=== PATIENT | female | born 1975 | race Caucasian/White ===

== ENCOUNTER 2021-10-16 00:36 | Day surgery (SDC) | payer BC, SELFPAY ==
--- NOTE | ~2021-10-16 | XR_ITS ---
XR chest 1V portable DATE: 10/16/2021 01:16 INDICATION: Cardiac arrest. STEMI. TECHNIQUE: Portable AP chest on 10/16/2021 at 0102 hours COMPARISON: None FINDINGS: ET tube in satisfactory position 2.7 cm above atul. NG tube coiled once in upper stomach. No pulmonary infiltrate or consolidation, pleural effusion or pulmonary vascular congestion or pneumo thorax. Heart size is likely within normal range considering magnification associated with AP project ion. IMPRESSION: No active cardiopulmonary disease ET and NG tubes in satisfactory position Reviewed, dictated and finalized at location [facility].
--- NOTE | ~2021-10-16 | XR_ITS ---
XR abdomen NG/feed tube insert DATE: 10/16/2021 01:20 INDICATION: Orogastric tube placement TECHNIQUE: AP view on 10/16/2021 at 0107 hours COMPARISON: None FINDINGS: Orogastric tube is in the upper body of the stomach, the proximal side-port just proximal t o the diaphragmatic hiatus. Tube advancement is recommended. IMPRESSION: Oral gastric tube in proximal stomach with proximal side-port in lower thorax; tube advan cement is recommended Reviewed, dictated and finalized at [facility]. Reviewed, dictated and finalized at location [facility]. IMPRESSION: Oral gastric tube in proximal stomach with proximal side-port in lo wer thorax; tube advancement is recommended
--- NOTE | 2021-10-16 00:32 | ECG_ITS ---
Measurements Intervals [place] Rate: 131 P: MA: 0 QRS: 78 QRSD: 112 T: 0 QT: 238 QTc: 351 Interpretive Statements ATRIAL FIBRILLATION WITH RAPID VENTRICULAR RESPONSE INTRAVENTRICULAR CONDUCTION DELAY DELAYED PRECORDIAL R/S TRANSITION INFERIOR ST ELEVATION MYOCARDIAL INFARCT- AGE INDETERMINATE POSTERIOR INFARCT, AGE INDETERMINATE ABNORMAL ECG Electronically Signed On 10-16-2021 9:57:01 CDT by Diego Lares D.O.
[2021-10-16 00:48] LABS: Basophils Absolute Auto 0.1 K/mm3 (0.0-0.1); Eosinophils Absolute Auto 0.2 K/mm3 (0-0.3); Eosinophils Percent Auto 1.6 % (0-4.4); Hemoglobin 11.9 g/dL (12.0-15.0); Immature Granulocyte Absolute 0.34 K/mm3 (0.00-0.031); Immature Granulocyte Percent A 2.6 % (0-0.5); Lymphocytes Absolute Auto 4.17 K/mm3 (0.9-3.2); Lymphocytes Percent Auto 32.4 % (18.3-44.2); Mean Corpuscular HGB Conc 32.2 g/dl (32-36); Mean Corpuscular Hemoglobin 33.6 pg (26-34); Mean Corpuscular Volume 104.5 fl (80-100); Mean Platelet Volume 8.9 fl (7.4-10.4); Monocytes Absolute Auto 1.1 K/mm3 (0.1-0.6); Monocytes Percent Auto 8.5 % (2.6-8.5); Neutrophils Absolute Auto 6.9 K/mm3 (1.3-6.7); Neutrophils Percent Auto 53.9 % (45.5-73.1); Platelet Count Result 347 k/mm3 (150-375); Red Blood Count 3.54 M/mm3 (4.2-5.4); Red Cell Distribution Width 13.1 % (11.5-14.5); White Blood Count 12.9 K/mm3 (4.5-10.0)
--- NOTE | 2021-10-16 00:50 | ED.GENADULT ---
HPI - General Adult General Chief complaint: Cardiac Arrest/CPR Stated complaint: CARDIAC ARRESST, STEMI Time Seen by Provider: 10/16/21 00:45 Source: EMS Mode of arrival: EMS Limitations: altered mental status and clinical condition History of Present Illness HPI narrative: Patient is a 46-year-old female who presents the emergency department with chief complaint of cardiac arrest. Patient was at work and collapsed CPR was started in the field and the patient was found to be in V. fib the patient was shocked 3 times in the field and had return of spontaneous circulation. The patient was being assisted with ventilation by bag valve mask by EMS. Upon arrival to emergency department the patient was still in return of spontaneous circulation with the a inferior ST elevation findings on EKG the prehospital setting. STEMI alert was activated Review of Systems Review of Systems: ROS unobtainable: Yes unobtainable due to endotracheal tube, unobtainable due to medical condition and unobtainable due to mental status Exam Narrative: GENERAL: Unresponsive with ventilations being assisted with [id number] and oropharyngeal airway HEAD: Normocephalic, atraumatic. EYES: PERRLA and EOMI.pupils 2mm ENT: Nares clear, no rhinorrhea or epistaxis. Mucous membranes moist. NECK: Supple. CHEST: Clear to auscultation. No respiratory distress. HEART: Regular rate and rhythm. No murmur heard. Normal peripheral pulses. ABDOMEN: Soft, nontender, nondistended, normal active bowel sounds. EXTREMITIES: Normal range of motion. No edema. SKIN: Warm, dry, no rash. NEURO: unresponsive PSYCH: Normal mood and affect. Course Course Emergency Course: EKG acute inferior ST elevation MO Given the patient has ROSC and had V. fib in the field as well as acute inferior ST elevations the patient was activated as a ST elevation MO. The case was discussed with the on-call front desk attendant who will take the patient to the Social Media Content Manager. Vital Signs Vital signs: Vital Signs Pulse Rate 78 10/16/21 01:01 Respiratory Rate 20 10/16/21 01:01 Pulse Rate 128 H 10/16/21 01:25 Respiratory Rate 20 10/16/21 01:09 Blood Pressure 96/71 L 10/16/21 01:09 Pulse Oximetry 100 10/16/21 01:09 Oxygen Delivery Bag Valve Mask 10/16/21 01:09 Procedures Intubation Intubation #1: Intubation Date: 10/16/21 Intubation Time: 00:54 Time out performed: Yes sedative: Etomidate Mg Given: 20 paralytic: Succinylcholine Mg Given: 100 Laryngoscope: fiber optic video scope Assist Device Used: fiber optic device Tube Size (cm): 7.5 Method of Intubation: orotracheal Number of Attempts: 1 Tube Secured Depth (cm): 22 Tube Secured Location: lips Tube Placement Confirmation: visualized tube passing through cords, equal breath sounds bilaterally, no breath sounds over epigastrium and confirmation by capnometry Patient Tolerated Procedure: well Intubation Complications: none Medical Decision Making Vital Signs Vital Signs: Vital Signs Pulse Rate 78 10/16/21 01:01 Respiratory Rate 20 10/16/21 01:01 Pulse Rate 128 H 10/16/21 01:25 Respiratory Rate 20 10/16/21 01:09 Blood Pressure 96/71 L 10/16/21 01:09 Pulse Oximetry 100 10/16/21 01:09 Oxygen Delivery Bag Valve Mask 10/16/21 01:09 Lab Data Result diagrams: 10/16/21 00:42 10/16/21 00:42 Labs: Lab Results 10/16/21 10/16/21 10/16/21 Range/Units 00:42 00:42 00:42 WBC 12.9 H (4.5-10.0) K/mm3 RBC 3.54 L (4.2-5.4) M/mm3 Hgb 11.9 L (12.0-15.0) g/dL Hct 37.0 (37.0-47.0) % MCV 104.5 H (80-100) fl MCH 33.6 (26-34) pg MCHC 32.2 (32-36) g/dl RDW 13.1 (11.5-14.5) % Plt Count 347 (150-375) k/mm3 MPV 8.9 (7.4-10.4) fl Immature Gran % (Auto) 2.6 H (0-0.5) % Neut % (Auto) 53.9 (45.5-73.1) % Lymph % (Auto) 32.4
[2021-10-16 00:58] LABS: INR 1.1; Prothrombin Time 13.5 Seconds (11.1-14.7)
[2021-10-16 00:59] LABS: Partial Thromboplastin Time 28.6 SECONDS (22.3-36.8)
[2021-10-16 01:01] VITALS: PULSE 78; RESP 20
[2021-10-16] MEDS: PROPOFOL IV EMULSION 100 ML 5 MG (01:01)
--- NOTE | 2021-10-16 01:02 | PM.IMHP ---
H&P: HPI History of Present Illness Date/Time: 10/16/21 01:02 H&P: Results Labs Labs: Short CBC 10/16/21 Range/Units 00:42 WBC 12.9 H (4.5-10.0) K/mm3 Hgb 11.9 L (12.0-15.0) g/dL Hct 37.0 (37.0-47.0) % Plt Count 347 (150-375) k/mm3
[2021-10-16 01:08] LABS: Alanine Aminotransferase 38 U/L (6-35); Albumin Level 3.7 g/dL (3.5-5.1); Alkaline Phosphatase 106 U/L (38-126); Anion Gap 13 mmol/L (8-16); Aspartate Amino Transferase 110 U/L (14-36); Bilirubin,Total 0.3 mg/dL (0.2-1.3); Blood Urea Nitrogen 9 mg/dL (7-17); Calcium 7.8 mg/dL (8.4-10.2); Carbon Dioxide 16 mmol/L (22-30); Chloride 109 mmol/L (98-107); Cholesterol 225 mg/dL (0-200); Estimated Glomerular Filt Rate > 60; Glucose 215 mg/dL (65-110); HDL Direct 53 mg/dL; Potassium 2.8 mmol/L (3.4-5.0); Sodium 138 mmol/L (137-145); Triglycerides 148 mg/dL (<150)
[2021-10-16 01:09] VITALS: BP 96/71; PULSE 128; RESP 20; O2SAT 100
[2021-10-16 01:12] LABS: LDL Cholesterol Direct 129 mg/dL
[2021-10-16 01:25] VITALS: PULSE 128
--- NOTE | 2021-10-16 01:26 | PC.NURSE ---
0035: Pt arrival, EKG performed, 1,000mL of NS started, 18 R AC initiated 0037: blood drawn, 0038: 20mg of atomadate given 0039: 100mg of Succ given 0040: pt intubated, castellanos placed 0043: 4,000 units of Heparin given 0045: 5mg of Metoprolol given 0047: NGT placed 0100: Pt placed in ICU-3 for inpatient stay 0101: Propofol 5mg/hr started 0110: 180mg Brilinta given via NGT, Aspirin given 4 81mg tabs 0115: quality assurance lab technician team arrival 0118: Pt taken to quality assurance lab technician
--- NOTE | 2021-10-16 02:45 | PM.IMHP ---
H&P: HPI History of Present Illness Date/Time: 10/16/21 02:45 Chief Complaint: Acute myocardial infarction /out of hospital VFib Narrative: this is a 46-year-old woman who was brought to the hospital emergency room in the middle of the night following resuscitation for out of hospital ventricular fibrillation. 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 She was resuscitated in the field and electrocardiogram demonstrates evidence of acute inferior wall infarction. She was intubated in the emergency room here at [facility] and in this setting is being brought to the cardiac labor arbitrator for emergency angiography. No further history is available to me at the time of this dictation Review of Systems Review of Systems: ROS unobtainable: Yes unobtainable due to medical condition Meds Vital Signs Vital Signs - 24 hr 10/16/21 01:01 10/16/21 01:09 10/16/21 01:25 Pulse Rate 78 128 H 128 H Respiratory Rate 20 20 Blood Pressure 96/71 L Pulse Oximetry 100 Oxygen Delivery Bag Valve Mask Exam Const: Other: intubated sedated white female appears to be well-developed well-nourished HENMT: Mouth: Yes moist mucous membranes Eyes: Sclera: sclerae normal Neck: Neck: supple and no JVD Resp: Effort & Inspection: normal respiratory effort Auscultation: clear to auscultation bilaterally Other: patient intubated breath clear Cardio: Rate: regular rate Rhythm: regular rhythm GI: GI Palp: Yes Soft to palpation Auscultation: normal bowel sounds Urinary Catheter: Urinary Catheter: patent and draining Skin: General skin exam: normal color Neuro: Other: sedated on ventilator support H&P: Results Labs Labs: Short CBC 10/16/21 Range/Units 00:42 WBC 12.9 H (4.5-10.0) K/mm3 Hgb 11.9 L (12.0-15.0) g/dL Hct 37.0 (37.0-47.0) % Plt Count 347 (150-375) k/mm3 BMP 10/16/21 00:42 Sodium 138 Potassium 2.8 L* Chloride 109 H Carbon Dioxide 16 L BUN 9 Creatinine 0.60 L Glucose 215 H Calcium 7.8 L Cardiac Enzymes 10/16/21 Range/Units 00:42 Troponin I 4.580 H* (0.000-0.034) ng/mL Liver Function 10/16/21 Range/Units 00:42 Total Bilirubin 0.3 (0.2-1.3) mg/dL AST 110 H (14-36) U/L ALT 38 H (6-35) U/L Alkaline Phosphatase 106 (38-126) U/L Albumin 3.7 (3.5-5.1) g/dL Assessment and Plan Assessment and plan (1) Acute ST elevation myocardial infarction (STEMI) of inferior wall: Code(s): I21.19 - ST elevation (STEMI) myocardial infarction involving other coronary artery of inferior wall Status: Acute Plan 46-year-old woman without any prior medical records available to me. She presents following resuscitation model possible ventricular fibrillation. ECG is consistent with acute inferior wall myocardial infarction. She is being brought for emergency angiography and revascularization at this time. Chris Ferrer MD [facility]
--- NOTE | 2021-10-16 02:57 | WPDCARDPROC ---
Cardiac Cath Procedure Note Date of procedure:: 10/16/21 Performing physician:: Chris Ferrer MD Indication:: ST-elevation AK Brief clinical history:: this is a 46-year-old woman who was brought to the emergency room following resuscitation my [id number] ventricular fibrillation. She appears to have evidence of inferior wall AK following resuscitation and is being brought for emergency catheterization in that setting. No previous history available to me prior to this dictation. Patient received aspirin and a loading dose of Brilinta in the emergency room and was intubated and placed on propofol infusion Procedure Procedure performed:: emergency coronary angiography attempted emergency PCI left ventriculography Sedation/Medication given:: IV propofol infusion Access site:: right femoral artery Estimated blood loss:: 25 cc Procedure note:: patient was brought to the cardiac catheterization lab in the emergency setting described above. The right femoral triangle was prepared and draped in the usual fashion. Anesthesia was provided with 1% lidocaine infiltrated locally. Using the modified Seldinger technique a 6 Lithuanian sheath was placed into the right femoral artery. After this I used a 5 Lithuanian FL4 catheter to engage and inject the left coronary artery in multiple projections. Following this a 6 Lithuanian JR4 guiding catheter was used to engage and inject the right coronary artery. Emergency PCI of right coronary artery was recommended and attempted as detailed below. When this was unsuccessful the guiding catheters and wires were removed. A 5 Lithuanian angled pigtail catheter was then used to measure left-sided hemodynamics and inject left ventriculogram in the our AO projection. Following this the case was terminated. The sheath was sutured into position. Angiomax infusion was stopped. Preparations were then be made for emergency transfer to [facility] for surgical revascularization. Findings:: Hemodynamics: Central aortic pressure was 126 over 78 left ventricle 126/5 end-diastolic pressure 18 there is no gradient across the aortic valve. Left ventricle: The left ventricle is normal in size the infero posterior segment is akinetic. The anterior wall contracts normally. The global ejection fraction appears to be 45-50%. The left main coronary artery is nicely patent the left anterior descending is a large caliber vessel extending down to and around the apex providing the apical inferior wall as well. The LAD has mild luminal irregularities but no angiographically significant disease. The circumflex system is relatively small in caliber and consists of 2 marginal branches. One of these is a bifurcating vessel. Both these marginals have about 70-80% stenosis but with ISELA 3 flow. The right coronary artery is dominant to the posterior circulation and is 100% occluded proximally. On left coronary injections there was collateral filling to the distal RCA. Intervention: The right coronary artery was engaged using a 6 Lithuanian JR4 guiding catheter. I used a 0.014 harbor boat pilot 150 wire to traverse the occlusion and advance the wire easily into the distal RCA. Initial balloon inflation was then made using a 3 x 30 mm Salomon PTCA balloon as the area of disease appeared to be relatively long. Following this balloon inflation there was obvious evidence of a dissection proximally in the artery extending down to the region of the balloon inflation. There was very good flow however into the distal right coronary the distal portion of the vessel looked angiographically normal. The balloon was then withdrawn there was torque on the right coronary guide that unfortunately resulted in the guiding catheter and guidewire losing position in the right coronary ostium and the RCA had to be reengaged. I reengaged the vessel using a 6 Lithuanian WRP guide. I attempted then to rewire the vessel using the [employer] Professor 15
--- NOTE | 2021-10-16 03:05 | PM.TDS ---
Transfer Discharge Sum: Prov Provider Date of admission: 10/16/2021 Primary care physician: UNKNOWN,DOCTOR Admitting clinician: Chris Ferrer Attending physician on admission: Chris Ferrer Attending physician on discharge: Chris Ferrer Discharging clinician: Chris Ferrer Anticipated date of transfer: 10/16/21 Receiving physician/facility: [facility] DS: Admitting Diagnosis Discharge Date 10/16/2021 Admitting Diagnosis acute inferior wall myocardial infarction with pru-[id number] ventricular fibrillation DS: Discharge Diagnosis Discharge Diagnosis Plan acute inferior wall myocardial infarction with [id number] ventricular fibrillation right coronary artery dissection Transfer Discharge Sum: Med Medications Active and Home Medications: Active Medications Propofol (Diprivan) 100 mls @ 2.13 mls/hr IV CONT .[id number] FABY; Protocol Potassium Chloride 40 meq/ (Sodium Chloride) 520 mls @ 130 mls/hr IVPB ONCE STA Stop: 10/16/21 05:04 Transfer Discharge Sum: Hosp Hospital Course Hospital course: Liz Bernal is a 46 year old female came to the hospital emergency room in the middle of the night following out of hospital ventricular fibrillation while she was at work. ECG following resuscitation showed evidence of acute infero posterior infarction and she was brought emergently to the cardiac catheterization lab. She was found to have a proximal occlusion of the dominant right coronary artery as well as moderate disease in 2 OM branches of the circumflex. Emergency PCI of right coronary artery was unsuccessful because of a spiral dissection in the artery that occluded the vessel created by the guiding catheter. The patient was sent to [facility] where she will be seen by cardiothoracic surgeon in consultation and will be provided emergency surgical revascularization. Time Spent with Patient Time attestation: Total time spent providing and/or coordinating transfer services: Total time spent: Greater than 30 minutes Exam Const: Other: Intubated sedated white female HENMT: Head: normal to inspection Eyes: Sclera: sclerae normal Neck: Neck: no JVD Thyroid: thyroid normal Carotids: normal carotid upstroke Chest: Chest palpation & inspection: normal inspection of the chest Resp: Auscultation: clear to auscultation bilaterally Cardio: Jugular venous distension: no JVD Palpation: normal PMI Rate: regular rate Rhythm: regular rhythm Heart sounds: S1 normal heart sound present and S2 normal heart sound present Peripheral pulses: Peripheral pulses 2+ throughout GI: Inspection: normal to inspection Auscultation: normal bowel sounds Skin: General skin exam: normal color Extrem: General: normal to inspection DS: Data Data Completed and Pending Labs on day of discharge: Labs from last 24 hours 10/16/21 10/16/21 10/16/21 00:42 00:42 00:42 WBC RBC Hgb Hct MCV MCH MCHC RDW Plt Count MPV Immature Gran % (Auto) Neut % (Auto) Lymph % (Auto) [place] % (Auto) Eos % (Auto) Baso % (Auto) Lymph # (Auto) [place] # (Auto) Eos # (Auto) Baso # (Auto) Abs Immat Gran (auto) Absolute Neuts (auto) Absolute Nucleated RBC Nucleated RBC % PT 13.5 INR 1.1 APTT 28.6 Sodium 138 Potassium 2.8 L* Chloride 109 H Carbon Dioxide 16 L Anion Gap 13 BUN 9 Creatinine 0.60 L Estim Creat Clear Calc Not Reportable Estimated GFR > 60 Glucose 215 H Calcium 7.8 L Total Bilirubin 0.3 AST 110 H ALT 38 H Alkaline Phosphatase 106 Troponin I 4.580 H* Total Protein 6.0 L Albumin 3.7 Triglycerides 148 Cholesterol 225 H LDL Cholesterol Direct 129 HDL Direct 53 Blood Type O Negative Antibody Screen Negative 10/16/21 00:42 WBC 12.9 H RBC 3.54 L Hgb 11.9 L Hct 37.0 MCV
[2021-10-16 03:30] VITALS: PULSE 69; O2SAT 100
== END 2021-10-16 02:30 | disposition home or self-care (01) ==
LOC: ANHED 00:59 → ANHCATHLAB 10-25 06:13
PROVIDERS: Specialist; Emergency Provider Emergency Medicine; Visit Provider Emergency Medicine
PROC: 4A023N7 Measurement of Cardiac Sampling and Pressure, Left Heart, Percutaneous Approach (ICD-10-PCS; CPT 93452; principal; 2021-10-16 00:50)
PROC: 02703ZZ Dilation of Coronary Artery, One Artery, Percutaneous Approach (ICD-10-PCS; CPT 92920; 2021-10-16 00:50)
DX: I21.19 ST elevation (STEMI) myocardial infarction involving other coronary artery of inferior wall (principal); I46.9 Cardiac arrest, cause unspecified; I25.10 Atherosclerotic heart disease of native coronary artery without angina pectoris; I25.42 Coronary artery dissection; E87.6 Hypokalemia
CPT/HCPCS: 31500; 36415; 71045; 80053; 80061; 84484; 85025; 85610; 85730; 86850; 86900; 86901; 92920; 93005; 93458; 99291; A9270; C1725; C1769; C1887; C1894; J0583; J1644; J2704; J3480; J7040